=== PATIENT | female | born 1985 | race Caucasian/White ===

== ENCOUNTER 2017-12-30 18:09 | Emergency (ER) | payer BC ==
--- NOTE | 2017-12-30 18:12 | PDOC ---
History of Present Illness - General History Source: Patient Exam Limitations: No Limitations - History of Present Illness Initial Comments: 12/30/17 18:37 The patient is a 32 year old female with no significant past medical history who presents to the ED with complaints of chest pain for one week. The patient reports pain to her left rib and sternal area. She describes the pain as a dull ache that is constant and worsened when sitting up, laughing and coughing. She also reports a sudden onset of shortness of breath and generalized weakness last night while walking to the garage that lasted several seconds before residing. Denies loss of consciousness. Patient is currently on Macrobid s/p polypectomy 2 weeks ago. Denies recent heavy lifting. Denies recent travel. Denies leg swelling. Denies cough. Denies rhinorrhea or throat pain. Denies rash. Denies nausea, vomiting, or diarrhea. Denies any other symptoms. LMP: 2 weeks ago Family hx: Patients family has a hx of HTN and diabetes. Social hx: The patient works as a nurse in [employer]. Patient is currently on control. <oMntana Holloway - Last Filed: 12/30/17 18:37> <Mandi Keller - Last Filed: 12/30/17 19:09> - General Chief Complaint: Chest Pain Stated Complaint: CHEST/BREAST PAIN Time Seen by Provider: 12/30/17 18:10 Past History <Montana Holloway - Last Filed: 12/30/17 18:37> - Past Medical History Disorders: Yes (IBS) - Suicide/Smoking/Psychosocial Hx Smoking Status: No Smoking History: Never smoked Number of Cigarettes Smoked Daily: 0 Cigars Per Day: 0 <Mandi Keller - Last Filed: 12/30/17 19:09> - Past Medical History Allergies/Adverse Reactions: Allergies Allergy/AdvReac Type Severity Reaction Status Date / Time No Known Allergies Allergy Verified 12/30/17 18:10 Home Medications: Ambulatory Orders Criselle Controll Pills 1 tab PO ASDIR 12/30/17 Review of Systems - Review of Systems Able to Perform ROS?: Yes Comments:: 12/30/17 18:37 GENERAL/CONSTITUTIONAL: + generalized weakness. No fever or chills. HEAD, EYES, EARS, NOSE AND THROAT: No change in vision. No ear pain or discharge. No sore throat. CARDIOVASCULAR: + chest pain, SOB RESPIRATORY: No cough, wheezing, or hemoptysis. GASTROINTESTINAL: No nausea, vomiting, diarrhea or constipation. GENITOURINARY: No dysuria, frequency, or change in urination. MUSCULOSKELETAL: No joint or muscle swelling or pain. No neck or back pain. SKIN: No rash NEUROLOGIC: No headache, vertigo, loss of consciousness, or change in strength/ sensation. ENDOCRINE: No increased thirst. No abnormal weight change. HEMATOLOGIC/LYMPHATIC: No anemia, easy bleeding, or history of blood clots. ALLERGIC/IMMUNOLOGIC: No hives or skin allergy. All Other Systems: Reviewed and Negative <Montana Holloway - Last Filed: 12/30/17 18:37> *Physical Exam - Vital Signs Last Vital Signs Temp Pulse Resp BP Pulse Ox 98.4 F 75 18 117/79 100 12/30/17 18:10 12/30/17 18:10 12/30/17 18:10 12/30/17 18:10 12/30/17 18:10 - Physical Exam Comments: 12/30/17 18:37 GENERAL: Awake, alert, and fully oriented, in no acute distress HEAD: No signs of trauma EYES: PERRLA, EOMI, sclera anicteric, conjunctiva clear ENT: Auricles normal inspection, hearing grossly normal, nares patent, oropharynx clear without exudates. Moist mucosa NECK: Normal ROM, supple, no lymphadenopathy, JVD, or masses LUNGS: Breath sounds equal, clear to auscultation bilaterally. No wheezes, and no crackles CHEST: + Reproducible left rib and sternal pain HEART: Regular rate and rhythm, normal S1 and S2, no murmurs, rubs or gallops ABDOMEN: Soft, nontender, normoactive bowel sounds. No guarding, no rebound. No masses EXTREMITIES: Normal range of motion, no edema. No clubbing or cyanosis. No cords, erythema, or tenderness NEUROLOGICAL: Normal speech SKIN: Warm, Dry, normal turgor, no rashes or lesions noted. <Montana Holloway - Last Filed: 12/30/17 18:37> Heart Score/ECG Review - History History: Slightly suspicious - Electrocardiogram EKG: Normal - ECG Intrepretation Comment:: 12/30/17 19:03 sinus at 61, nl axis, nl interval, no acute st/t wave findings <Mandi Keller - Last Filed: 12/30/17 19:09> Medical Decision Making - Medical Decision Making 12/30/17 19:07 a/p: 32yo female with reproducible chest wall pain -ttp over costosternal junction -no rashes -no cardiac risk factors for ACS, no fam hx of sudden cardiac , no palpitations, PERC negative -will check ekg, cxr -motrin for pain -will monitor and reassess 12/30/17 19:08 vss ambulatory in the ED with a steady gait pending cxr will be signed out to the oncoming ED physician pending cxr and reassess <Mandi Keller - Last Filed: 12/30/17 19:09> *DC/Admit/Observation/Transfer - Attestations Scribe Attestion: 12/30/17 18:37 Documentation prepared by Montana Holloway, acting as rn medical inpatient services for Mandi Keller DO <Montana Holloway - Last Filed: 12/30/17 18:37> - Discharge Dispostion Admit: No - Attestations Physician Attestion: 12/30/17 19:09 I, Dr. Mandi Keller DO, attest that this document has been prepared under my direction and personally reviewed by me in its entirety. I further attest, that it accurately reflects all work, treatment, procedures and medical decision -making performed by me. <Mandi Keller - Last Filed: 12/30/17 19:09> Diagnosis at time of Disposition: Atypical chest pain - Discharge Dispostion Condition at time of disposition: Stable - Referrals Referrals: Alice Dangelo MD [Primary Care Provider] - - Patient Instructions Printed Discharge Instructions: DI for Atypical Chest Pain - Post Discharge Activity
[2017-12-30 18:19] VITALS: BP 117/79; PULSE 75; TEMP 98.4; BMI 26.6
[2017-12-30] MEDS ORDERED: IBUPROFEN 600 MG TABLET (FP) PO ONE ×2 (18:26→18:28)
--- NOTE | 2017-12-30 19:32 | PDOC ---
*Physical Exam - Vital Signs Last Vital Signs Temp Pulse Resp BP Pulse Ox 98.4 F 75 18 117/79 100 12/30/17 18:10 12/30/17 18:10 12/30/17 18:10 12/30/17 18:10 12/30/17 18:10 ED Treatment Course - ADDITIONAL ORDERS Additional order review: Laboratory Results 12/30/17 18:38 Urine HCG, Qual Negative - Medications Given in the ED: ED Medications Discontinued Medications Generic Name Dose Route Start Last Admin Trade Name Clayton PRN Reason Stop Dose Admin Ibuprofen 600 mg 12/30/17 18:26 12/30/17 18:38 Motrin - PO 12/30/17 18:27 600 mg ONCE ONE Administration Progress Note - Progress Note Progress Note: Care of this patient received from Dr. Keller. Chest x-ray shows no evidence of infiltrate/effusion/masses or other acute processes. Patient was discharged with instructions to return to the emergency room if she has persistent severe pain or experiences shortness of breath/cough/fever. *DC/Admit/Observation/Transfer Diagnosis at time of Disposition: Atypical chest pain - Discharge Dispostion Disposition: HOME Condition at time of disposition: Stable - Referrals Referrals: Alice Dangelo MD [Primary Care Provider] - 1 week - Patient Instructions Printed Discharge Instructions: DI for Atypical Chest Pain Additional Instructions: avoid strenuous upper body activity for the next 7-10 days ibuprofen/naproxen/acetaminophen as needed for pain return if pain is severe, shortness of breath/cough/fever develops followup with your doctor within 5-7 days - Post Discharge Activity
--- NOTE | 2018-01-01 12:33 | EKG ---
Test Reason : Blood Pressure : / mmHG Vent. Rate : 061 BPM Atrial Rate : 061 BPM P-R Int : 128 ms QRS Dur : 082 ms QT Int : 376 ms P-R-T Axes : 059 072 034 degrees QTc Int : 378 ms NORMAL SINUS RHYTHM WITH SINUS ARRHYTHMIA NORMAL ECG NO PREVIOUS ECGS AVAILABLE Confirmed by KENISHA BURLESON MD ([id number]) on 01/01/2018 12:33:13 PM Referred By: TOMY HERNANDEZ Confirmed By:KENISHA BURLESON MD
== END 2017-12-30 19:50 | disposition home or self-care (01) ==
LOC: FER 18:09
DX: R07.89 Other chest pain (principal); K58.9 Irritable bowel syndrome, unspecified
CPT/HCPCS: 71046-TC-FY; 84703; 93005; 99285-25

== ENCOUNTER 2018-02-01 09:16 | Emergency (ER) | payer BC ==
[2018-02-01 09:24] VITALS: BP 124/77; PULSE 101; TEMP 99.9; BMI 26.6
--- NOTE | 2018-02-01 10:00 | PDOC ---
History of Present Illness - General Chief Complaint: Sore Throat Stated Complaint: THROAT & RIGHT EAR PAIN Time Seen by Provider: 02/01/18 09:31 Past History - Past Medical History Allergies/Adverse Reactions: Allergies Allergy/AdvReac Type Severity Reaction Status Date / Time No Known Allergies Allergy Verified 02/01/18 09:20 Home Medications: Ambulatory Orders Amoxicillin/Potassium Clav [Augmentin 875-125 Tablet] 1 each PO BID #14 tablet 02/01/18 Ibuprofen [Advil -] 600 mg PO TID PRN 02/01/18 Norgestrel-Ethinyl Estradiol [Cryselle-28 Tablet] 1 tab PO DAILY 02/01/18 COPD: No Disorders: Yes (IBS) - Immunization History Immunization Up to Date: Yes - Suicide/Smoking/Psychosocial Hx Smoking Status: No Smoking History: Never smoked Have you smoked in the past 12 months: No Number of Cigarettes Smoked Daily: 0 Cigars Per Day: 0 Hx Alcohol Use: No Drug/Substance Use Hx: No Substance Use Type: None *Physical Exam - Vital Signs Last Vital Signs Temp Pulse Resp BP Pulse Ox 99.9 F H 101 H 16 124/77 100 02/01/18 09:18 02/01/18 09:18 02/01/18 09:18 02/01/18 09:18 02/01/18 09:18 ED Treatment Course - LABORATORY CBC & Chemistry Diagram: 02/01/18 09:55 02/01/18 09:55 *DC/Admit/Observation/Transfer Diagnosis at time of Disposition: URI, acute - Discharge Dispostion Disposition: HOME Condition at time of disposition: Stable Decision to Admit order: No - Referrals Referrals: Alice Dangelo MD [Primary Care Provider] - - Patient Instructions Printed Discharge Instructions: DI for Viral Upper Respiratory Infection -- Adult - Post Discharge Activity Forms/Work/School Notes: Back to Work
[2018-02-01 10:39] LABS: BASO % 0.4 % (0-2.0); EOS % 1.4 % (0-4.5); HEMATOCRIT 39.9 % (32.4-45.2); HEMOGLOBIN 13.9 GM/dl (10.7-15.3); LYMPH % 8.7 % (8-40); MCH 30.8 pg (25.7-33.7); MCHC 34.7 g/dl (32.0-36.0); MEAN CELL VOLUME 88.8 fl (80-96); MEAN PLT VOLUME 8.2 fl (7.5-11.1); MONO % 6.4 % (3.8-10.2); NEUT % 83.1 % (42.8-82.8); PLATELET COUNT 284 K/MM3 (134-434); RBC 4.49 M/mm3 (3.60-5.2); WHITE BLOOD COUNT 10.1 K/mm3 (4.0-10.8)
[2018-02-01 10:53] LABS: ALBUMIN 3.8 g/dl (3.5-5.0); ALK PHOS 60 U/L (32-92); ANION GAP 5 (8-16); BILIRUBIN,TOTAL 0.5 mg/dl (0.2-1.0); BLOOD UREA NITROGEN 10 mg/dl (7-18); CALCIUM 9.1 mg/dl (8.4-10.2); CHLORIDE 108 mmol/L (98-107); CO2 24 mmol/L (22-28); CREATININE 0.8 mg/dl (0.6-1.3); GLUCOSE,RANDOM 95 mg/dl (74-106); POTASSIUM 4.1 mmol/L (3.5-5.1); SGOT/AST 14 U/L (10-42); SGPT/ALT 13 U/L (10-40); SODIUM 137 mmol/L (136-145); TOT PROT 7.3 g/dl (6.4-8.3)
[2018-02-01] MEDS ORDERED: AMOX TR/POT CLAV 875MG/125MG TABLETS (FP) PO ONE (11:48)
[2018-02-01] MEDS ORDERED: AMOX TR/POT CLAV 875MG/125MG TABLETS (FP) ONE (11:50)
== END 2018-02-01 11:59 | disposition home or self-care (01) ==
LOC: FER 09:16
DX: J06.9 Acute upper respiratory infection, unspecified (principal)
CPT/HCPCS: 36415; 80053; 85025; 86308; 87070; 87430; 99282-25

== ENCOUNTER 2019-02-08 02:07 | Emergency (ER) | payer BC, OTHER ==
[2019-02-08 02:14] VITALS: BP 126/85; PULSE 80; TEMP 98; BMI 26.9
--- NOTE | 2019-02-08 02:52 | PDOC ---
History of Present Illness - General Chief Complaint: Lightheaded Stated Complaint: DIZZY Time Seen by Provider: 02/08/19 02:09 History Source: Patient Exam Limitations: No Limitations - History of Present Illness Initial Comments: 02/08/19 02:52 33 year old female with no past medical history presents with lightheadedness. 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 The patient has had several episodes of work where she would feel suddenly lightheaded. Never had chest pain or shortness of breath. Denies recent illnesses. Denies diplopia, slurring of speech, numbness, weakness. Pt states that it's not exertional and occurs randomly throughout the day. Pt had recently visited [facility] [facility] ED and had blood work, ECG, and labs done. ECG was unremarkable. Labs including TSH, d-dimer, and troponin were negative. Chest xray unremarkable. Pt was instructed to follow up with a neurologist. Pt had another episode overnight and came into ED. In the ED, did not have any symptoms. Past History - Past Medical History Allergies/Adverse Reactions: Allergies Allergy/AdvReac Type Severity Reaction Status Date / Time No Known Allergies Allergy Verified 02/01/18 09:20 Home Medications: Ambulatory Orders Norgestrel-Ethinyl Estradiol [Cryselle-28 Tablet] 1 each PO DAILY 02/08/19 COPD: No Disorders: Yes (IBS) - Immunization History Immunization Up to Date: Yes - Suicide/Smoking/Psychosocial Hx Smoking Status: No Smoking History: Never smoked Have you smoked in the past 12 months: No Number of Cigarettes Smoked Daily: 0 Cigars Per Day: 0 Hx Alcohol Use: No Drug/Substance Use Hx: No Substance Use Type: None Review of Systems - Review of Systems Able to Perform ROS?: Yes Comments:: 02/08/19 03:03 GENERAL/CONSTITUTIONAL: [No fever or chills. No weakness. No weight change.] HEAD, EYES, EARS, NOSE AND THROAT: [No change in vision. No ear pain or discharge. No sore throat.] CARDIOVASCULAR: [No chest pain or shortness of breath.] RESPIRATORY: [No cough, wheezing, or hemoptysis.] GASTROINTESTINAL: [No nausea, vomiting, diarrhea or constipation. No rectal bleeding.] GENITOURINARY: [No dysuria, frequency, or change in urination.] MUSCULOSKELETAL: [No joint or muscle swelling or pain. No neck or back pain.] SKIN AND BREASTS: [No rash or easy bruising.] NEUROLOGIC: [No headache, vertigo, loss of consciousness, or loss of sensation. ] + lightheadedness PSYCHIATRIC: [No depression or anxiety.] ENDOCRINE: [No increased thirst. No abnormal weight change.] HEMATOLOGIC/LYMPHATIC: [No anemia, easy bleeding, or history of blood clots.] ALLERGIC/IMMUNOLOGIC: [No hives or skin allergy. No latex allergy.] *Physical Exam - Vital Signs Last Vital Signs Temp Pulse Resp BP Pulse Ox 98 F 80 16 126/85 99 02/08/19 02:09 02/08/19 02:09 02/08/19 02:02/08/19 02:09 02/08/19 02:09 - Physical Exam Comments: 02/08/19 03:03 GENERAL: Awake, alert, and fully oriented, in no acute distress HEAD: No signs of trauma EYES: EOMI, sclera anicteric, conjunctiva clear ENT: Auricles normal inspection, hearing grossly normal, nares patent, Moist mucosa NECK: Normal ROM, supple, EXTREMITIES: Normal range of motion, no edema. No clubbing or cyanosis. No cords, erythema, or tenderness NEUROLOGICAL: Cranial nerves II through XII grossly intact. Normal speech, normal gait SKIN: Warm, Dry, normal turgor, no rashes or lesions noted. Medical Decision Making - Medical Decision Making 02/08/19 03:04 Vital Signs Temp Pulse Resp BP Pulse Ox 98 F 80 16 126/85 99 02/08/19 02:09 02/08/19 02:09 02/08/19 02:09 02/08/19 02:09 02/08/19 02:09 The patient has been having lightheadedness episodes for several months. At this time, it is unclear what the etiology of her symptoms are. The patient would benefit from further additional testing such as echo, holter, carotid dopplers and MRI of the brain. Given that the symptoms have been chronic, we will defer testing in the ED. The patient states that she will follow up with her PMD today to discuss these issues. Pt was also given referrals to a neurologist and cattle alley worker. I discussed the physical exam findings, ancillary test results and final diagnoses with the patient. I answered all of the patient's questions. The patient was satisfied with the care received and felt comfortable with the discharge plan and treatment plan. The patient will call their primary care physician within 24 hours to arrange follow-up and will return to the Emergency Department with any new, persistant or worsening symptoms. *DC/Admit/Observation/Transfer Diagnosis at time of Disposition: Lightheadedness - Discharge Dispostion Disposition: HOME Condition at time of disposition: Stable Decision to Admit order: No - Referrals Referrals: Pearl Hanna MD [Primary Care Provider] - Dilip Wynn MD [Staff Physician] - Abram Weber MD [Staff Physician] - Ismael Rust MD [Staff Physician] - Juan Stein MD [Staff Physician] - Bj Almaraz MD [Staff Physician] - Yunier Noyola MD [Staff Physician] - Yossi Veliz MD [Staff Physician] - - Patient Instructions Additional Instructions: For your symptoms, it is very important that you follow up with your doctor. Please make an appointment with a neurologist and a cattle alley worker. You may potentially benefit from a holter monitor, echocardiogram, carotid dopplers and MRI of the brain. Please follow up with Dr. Crowley to discuss these issues. - Post Discharge Activity
== END 2019-02-08 02:54 | disposition home or self-care (01) ==
LOC: FER 02:07
DX: R42 Dizziness and giddiness (principal); K58.9 Irritable bowel syndrome, unspecified
CPT/HCPCS: 99281-25

== ENCOUNTER 2019-02-13 10:06 | Emergency (ER) | payer OTHER ==
[2019-02-13 10:34] VITALS: BP 112/72; PULSE 92; TEMP 98.9; BMI 29.0
--- NOTE | 2019-02-13 11:35 | PDOC ---
History of Present Illness - General Chief Complaint: Lightheaded Stated Complaint: LIGHTHEADED Time Seen by Provider: 02/13/19 10:44 History Source: Patient - History of Present Illness Timing/Duration: other Past History - Past Medical History Allergies/Adverse Reactions: Allergies Allergy/AdvReac Type Severity Reaction Status Date / Time No Known Allergies Allergy Verified 02/13/19 10:39 Home Medications: Ambulatory Orders Norgestrel-Ethinyl Estradiol [Cryselle-28 Tablet] 1 each PO DAILY 02/08/19 COPD: No Disorders: Yes (IBS) - Immunization History Immunization Up to Date: Yes - Suicide/Smoking/Psychosocial Hx Smoking Status: No Smoking History: Never smoked Have you smoked in the past 12 months: No Number of Cigarettes Smoked Daily: 0 Cigars Per Day: 0 Information on smoking cessation initiated: No Hx Alcohol Use: No Drug/Substance Use Hx: No Substance Use Type: None Review of Systems - Review of Systems Constitutional: No: Chills, Fever, Malaise, Weakness, Unexplained wgt Loss Respiratory: No: Shortness of Breath Cardiac (ROS): No: Chest Pain, Palpitations, Syncope ABD/GI: No: Nausea, Vomiting Neurological: Yes: Dizziness. No: Headache, Numbness, Tingling, Weakness *Physical Exam - Vital Signs Last Vital Signs Temp Pulse Resp BP Pulse Ox 98.9 F 92 H 18 112/72 100 02/13/19 10:25 02/13/19 10:25 02/13/19 10:25 02/13/19 10:25 02/13/19 10:25 - Physical Exam General Appearance: Yes: Appropriately Dressed. No: Apparent Distress HEENT: positive: Normal Voice Neck: positive: Supple Respiratory/Chest: negative: Respiratory Distress Integumentary: positive: Dry, Warm Neurologic: positive: paper sheeter II-XII NML intact, Fully Oriented, Alert, Normal Mood/ Affect, Motor Strength / Medical Decision Making - Medical Decision Making 02/13/19 11:28 33 yo F, presents with dizziness. Patient states for the past 5-6 months has had intermittent lightheadedness regardless of position. No vertigo, headache, nausea, vomiting, visual changes, CP, SOB, palpitations or unexplained weight loss. Has had multiple workups which were negative including last week at [facility] where pt had negative labs including TSH and dimer. Was seen by cardiology yesterday and told symptoms most likely not cardiac. Patient was also seen by a neurologist and now has MRI brain pending tomorrow but here in ED, requesting MRI today because she does not want to wait until tomorrow. Patient well- appearing and stable with unremarkable exam. Explained to patient that she needs to wait for her MRI tomorrow and to continue following up with her doctors for further workup of her sxs *DC/Admit/Observation/Transfer Diagnosis at time of Disposition: Lightheadedness - Discharge Dispostion Disposition: HOME Condition at time of disposition: Stable - Referrals Referrals: Pearl Hanna MD [Primary Care Provider] - - Patient Instructions Printed Discharge Instructions: DI for Dizziness-Nonvertigo Additional Instructions: The cause of your dizziness is unclear and you need to follow up with for your MRI tomorrow as scheduled - Post Discharge Activity
--- NOTE | 2019-02-17 15:39 | EKG ---
Test Reason : Blood Pressure : / mmHG Vent. Rate : 093 BPM Atrial Rate : 093 BPM P-R Int : 134 ms QRS Dur : 080 ms QT Int : 346 ms P-R-T Axes : 057 074 004 degrees QTc Int : 430 ms NORMAL SINUS RHYTHM NONSPECIFIC ST AND T WAVE ABNORMALITY ABNORMAL ECG WHEN COMPARED WITH ECG OF 30-DEC-2017 18:31, VENT. RATE HAS INCREASED BY 32 BPM NONSPECIFIC T WAVE ABNORMALITY, WORSE IN ANTERIOR LEADS Confirmed by KENISHA BURLESON MD ([id number]) on 02/17/2019 3:38:47 PM Referred By: Confirmed By:KENISHA BURLESON MD
== END 2019-02-13 11:45 | disposition home or self-care (01) ==
LOC: JER 10:06
DX: R42 Dizziness and giddiness (principal)
CPT/HCPCS: 93005; 93010; 99281-25

== ENCOUNTER 2019-03-29 12:53 | Emergency (ER) | payer OTHER ==
[2019-03-29 13:14] VITALS: PULSE 90; BMI 29.0
--- NOTE | 2019-03-29 14:42 | PDOC ---
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 Has been having daily episodes of brief lightheadedness for last 2 months. Today , patient felt more lightheaded than normal, laid down on floor and was unable to stand. Lasted 3-4 minutes, longer than normal episodes, accompanied by SOB, denied head trauma or LOC. Called EMS herself. Events come and go, not triggered by specific activity, random with regards to time and place, relieved by rest. Also reports LLE pain inside leg. Denies recent leg trauma, muscle cramping, unable to exercise 2/2 lightheadedness last 2 months. On OCP for 16 years, stopped earlier March. Denies recent long-distance travel or long periods of sitting. Being evaluated by rivet hole puncher, s/p echo, stress test, and holter, results normal. Evaluated MRI head by neurologist, no pathology found. Has recent auto- antibody testing showing elevated ASO and TPO. Past History - Past Medical History Allergies/Adverse Reactions: Allergies Allergy/AdvReac Type Severity Reaction Status Date / Time No Known Allergies Allergy Verified 03/29/19 13:14 Home Medications: Ambulatory Orders Norgestrel-Ethinyl Estradiol [Cryselle-28 Tablet] 1 each PO DAILY 02/08/19 COPD: No Disorders: Yes (IBS) - Immunization History Immunization Up to Date: Yes - Suicide/Smoking/Psychosocial Hx Smoking Status: No Smoking History: Never smoked Have you smoked in the past 12 months: No Number of Cigarettes Smoked Daily: 0 Cigars Per Day: 0 Hx Alcohol Use: No Drug/Substance Use Hx: No Substance Use Type: None Review of Systems - Review of Systems Constitutional: Yes: Weakness. No: Chills, Diaphoresis, Fever HEENTM: No: Blurred Vision, Double Vision, Throat Swelling Respiratory: Yes: Shortness of Breath. No: Cough Cardiac (ROS): Yes: Lightheadedness. No: Chest Pain, Edema, Palpitations ABD/GI: No: Constipated, Diarrhea, Nausea, Vomiting, Other : No: Burning, Dysuria, Discharge Musculoskeletal: Yes: Muscle Pain (LLE) Integumentary: No: Bruising, Lesions, Pallor, Rash Neurological: No: Headache, Paresthesia Psychiatric: No: Anxiety, Stressors Endocrine: No: Symptoms Reported Hematologic/Lymphatic: No: Symptoms Reported *Physical Exam - Vital Signs Last Vital Signs Temp Pulse Resp BP Pulse Ox 98.7 F 90 16 120/65 97 03/29/19 13:12 03/29/19 13:12 03/29/19 13:12 03/29/19 13:12 03/29/19 13:12 - Physical Exam General Appearance: Yes: Appropriately Dressed. No: Apparent Distress HEENT: positive: KAMI, Normal ENT Inspection, Normal Voice, Symmetrical, Pharynx Normal. negative: Scleral Icterus (R), Scleral Icterus (L) Neck: positive: Tender, Trachea midline, Normal Thyroid, Supple Respiratory/Chest: positive: Lungs Clear, Normal Breath Sounds. negative: Chest Tender, Respiratory Distress, Decreased Breath Sounds, Crackles, Rales, Rhonchi Cardiovascular: positive: Regular Rhythm, Regular Rate. negative: Murmur, Gallop/S3 Gastrointestinal/Abdominal: positive: Soft. negative: Normal Bowel Sounds, Organomegaly Musculoskeletal: positive: Other. negative: Decreased Range of Motion Extremity: positive: Normal Range of Motion, Tender, Calf Tenderness (point tenderness to L lateral gastroc body, no signs of vesicular rash, bruising, injury) Integumentary: positive: Normal Color, Dry, Warm Neurologic: positive: clinical resource manager II-XII NML intact, Fully Oriented, Alert, Normal Mood/ Affect, Normal Response, Motor Strength / ED Treatment Course - LABORATORY CBC & Chemistry Diagram: 03/29/19 15:00 03/29/19 15:50 Medical Decision Making - Medical Decision Making 03/29/19 16:00 Marina Black is a 33F with PMH lightheadedness presenting with L leg pain and worsening lightheadedness. With worsening lightheadedness, concerned for cardiac pathology. Will evaluate for electrolyte imbalance, arrhythmia, dehydration. Ordering CMP, CBC, UA, UC, Upreg, CXR, ECG. Given LLE pain and long-term OCP use, concerned for PE. Cannot PERC out due to OCP use, but low risk Wells. Ordering LLE doppler and d-dimer for low prob r/o DVT/PE. 03/29/19 17:20 LE doppler shows no DVT. D-dimer not elevated. Preliminary read CXR shows no pulmonary or cardiac abnormalities. Ruled out PE and arrhythmia in ED, plan to discharge home with f/u cardiology for further evaluation of lightheadedness. *DC/Admit/Observation/Transfer Diagnosis at time of Disposition: Dizziness - Discharge Dispostion Disposition: HOME - Referrals - Patient Instructions Printed Discharge Instructions: DI for Dizziness-Nonvertigo Additional Instructions: Today you were evaluated for worsening lightheadedness and shortness of breath. We looked at your blood levels of electrolytes, checked your heart for any abnormalities, checked your thyroid function, and evaluated your urine for any issues. All of your results were normal. We also performed a doppler study on your left leg and a test call a d-dimer for evaluation for a pulmonary embolism given your shortness of breath and use of oral contraception; no deep clots or pulmonary embolism noted. Based on our evaluation, there is no immediate, life-threatening issues causing your lightheadedness today. Please return to see your rivet hole puncher to continue the evaluation of your symptoms. If you have any further or worsening symptoms, including loss of consciousness, worsening headaches, nausea/vomiting, fever or any other symptoms you find concerning, please return to the emergency room. - Post Discharge Activity
[2019-03-29] MEDS ORDERED: SODIUM CHLORIDE 0.9% 500 ML INFUS.BAG IV ONE (15:17)
[2019-03-29 16:05] LABS: HCG,QUALITATIVE URINE Negative
[2019-03-29 16:09] LABS: HYALINE CASTS 1 /lpf (0-8); URINE APPEARANCE CLEAR; URINE BACTERIA 31.3 /hpf (NEGATIVE); URINE BILIRUBIN NEGATIVE (NEGATIVE); URINE COLOR YELLOW; URINE GLUCOSE (UA) NEGATIVE (NEGATIVE); URINE KETONE 1+ (NEGATIVE); URINE LEUK ESTERASE NEGATIVE (NEGATIVE); URINE NITRITE NEGATIVE (NEGATIVE); URINE PROTEIN NEGATIVE (NEGATIVE); URINE RBC 75 /hpf (0-4); URINE UROBILINOGEN 0.2 mg/dL (0.2-1.0); URINE WBC 1 /hpf (0-5)
[2019-03-29 16:10] LABS: BASO % 0.8 % (0-2.0); HEMATOCRIT 40.3 % (32.4-45.2); HEMOGLOBIN 13.7 GM/dL (10.7-15.3); LYMPH % 22.3 % (8-40); MCH 30.4 pg (25.7-33.7); MCHC 33.9 g/dl (32.0-36.0); MEAN CELL VOLUME 89.7 fl (80-96); MEAN PLT VOLUME 8.3 fl (7.5-11.1); MONO % 9.3 % (3.8-10.2); NEUT % 61.6 % (42.8-82.8); PLATELET COUNT 280 K/MM3 (134-434); RDW 13.1 % (11.6-15.6); WHITE BLOOD COUNT 7.4 K/mm3 (4.0-10.0)
[2019-03-29 16:25] LABS: INR 1.07 (0.83-1.09); PROTHROMBIN TIME (PATIENT) 12.6 SEC (9.7-13.0)
[2019-03-29 16:32] LABS: ALK PHOS 91 U/L (45-117); ANION GAP 6 MMOL/L (8-16); BILIRUBIN,TOTAL 0.5 mg/dL (0.2-1); CALCIUM 9.7 mg/dL (8.5-10.1); CHLORIDE 107 mmol/L (98-107); CO2 27 mmol/L (21-32); CREATININE 0.9 mg/dL (0.55-1.3); GLUCOSE,RANDOM 86 mg/dL (74-106); MAGNESIUM 2.3 mg/dL (1.8-2.4); POTASSIUM 3.8 mmol/L (3.5-5.1); SGOT/AST 13 U/L (15-37); SGPT/ALT 23 U/L (13-61); SODIUM 140 mmol/L (136-145); TOT PROT 7.6 g/dl (6.4-8.2)
--- NOTE | 2019-03-29 18:04 | PDOC ---
Documentation entered by Brett Greenwood SCRIBE, acting as scribe for Timmy Degroot MD. Timmy Degroot MD: This documentation has been prepared by the Timo corrigan Joel, SCRIBE, under my direction and personally reviewed by me in its entirety. I confirm that the documentation accurately reflects all work, treatment, procedures, and medical decision making performed by me. Attending Attestation - Resident Resident Name: BlancaDewayne - ED Attending Attestation I have performed the following: I have examined & evaluated the patient, The case was reviewed & discussed with the resident, I agree w/resident's findings & plan, Exceptions are as noted - HPI HPI: 03/29/19 15:49 The patient is a 33 year old female with a significant PMH of IBS and recurrent lightheadedness who presents to the emergency department for evaluation of lightheadedness and SOB this morning. The patient states she felt very lightheaded this morning and had to lie down for a few minutes. She denies LOC. Denies room-spinning sensation. States that the lightheadedness was associated shortness of breath. She denies hitting her head or LOC. Pt states that she has had several episodes of lightheadedness and has been evaluated by cardiology and neurology, as well as rheumatology. However, the SOB this morning concerned her, prompting her to come to the ED. Pt currently denies any complaints. Denies fever, chills, nausea, vomit, diarrhea and constipation. Denies dysuria, frequency, urgency and hematuria. Allergies: NKA Past surgical history: Polyp removal. Social history: No reported cigarette, alcohol, or drug use. - Physicial Exam PE: 03/29/19 15:30 GENERAL: Awake, alert, and fully oriented, in no acute distress. HEAD: No signs of trauma EYES: PERRLA, EOMI, sclera anicteric, conjunctiva clear ENT: Auricles normal inspection, hearing grossly normal, nares patent, oropharynx clear without exudates. Moist mucosa NECK: Nontender, no stepoffs, Normal ROM, supple, no lymphadenopathy, JVD, or masses LUNGS: Breath sounds equal, clear to auscultation bilaterally. No wheezes, and no crackles HEART: Regular rate and rhythm, normal S1 and S2, no murmurs, rubs or gallops ABDOMEN: Soft, nontender, normoactive bowel sounds. No guarding, no rebound. No masses EXTREMITIES: Normal range of motion, no edema. No clubbing or cyanosis. No cords , erythema, or tenderness NEUROLOGICAL: Cranial nerves II through XII intact. 5/5 strength and sensation in all extremities, Normal speech, normal gait, normal cerebellar function SKIN: Warm, Dry, normal turgor, no rashes or lesions noted. - Medical Decision Making 03/29/19 17:53 33 F with lightheadedness and SOB this morning, now resolved. EKG with no arrhythmia or ischemia. Vitals in ED normal. Will r/o PE with ddimer, as pt is low risk. - Labs, trop, ddimer - CXR - IVF 03/29/19 18:03 Labs wnl dimer negative 03/29/19 18:21 CXR clear Pt is well appearing, with normal vitals. Clinically stable for DC at this time. I discussed the physical exam findings, ancillary test results and final diagnoses with the patient. I answered all of the patient's questions. The patient was satisfied with the care received and felt comfortable with the discharge plan and treatment plan. The patient agrees to follow up with the primary care physician within 24-72 hours.
[2019-03-29 18:53] VITALS: BP 128/81; TEMP 98.3
--- NOTE | 2019-03-30 09:30 | EKG ---
Test Reason : Blood Pressure : / mmHG Vent. Rate : 062 BPM Atrial Rate : 062 BPM P-R Int : 132 ms QRS Dur : 078 ms QT Int : 384 ms P-R-T Axes : 051 058 019 degrees QTc Int : 389 ms NORMAL SINUS RHYTHM NORMAL ECG WHEN COMPARED WITH ECG OF 13-FEB-2019 10:04, VENT. RATE HAS DECREASED BY 31 BPM Confirmed by JOHNNY SALMON MD ([id number]) on 03/30/2019 9:30:00 AM Referred By: Confirmed By:JOHNNY SALMON MD
== END 2019-03-29 18:53 | disposition home or self-care (01) ==
LOC: JER 12:53
PROC: 3E0337Z Introduction of Electrolytic and Water Balance Substance into Peripheral Vein, Percutaneous Approach (ICD-10-PCS; principal; 2019-03-29)
DX: R42 Dizziness and giddiness (principal)
CPT/HCPCS: 36415; 71046-TC-FY; 80053; 81003; 82550; 83735; 84443; 84484; 84703; 85025; 85379; 85610; 87086; 93005; 93010; 93971-TC; 99282-25

== ENCOUNTER 2019-06-02 13:03 | Emergency (ER) | payer OTHER | END 2019-06-02 19:46 | disposition home or self-care (01) | LOC: JER 13:03 ==

== ENCOUNTER 2021-03-11 15:54 | Emergency (ER) | payer OTHER ==
[2021-03-11 17:15] VITALS: BP 114/69; PULSE 85; TEMP 98.4; BMI 26.6
[2021-03-11 17:20] LABS: BASO % 1.9 % (0-2.0); EOS % 3.7 % (0-4.5); HEMATOCRIT 38.2 % (32.4-45.2); HEMOGLOBIN 12.6 GM/dl (10.7-15.3); LYMPH % 36.4 % (8-40); MCH 30.1 pg (25.7-33.7); MCHC 32.9 g/dl (32.0-36.0); MEAN CELL VOLUME 91.3 fl (80-96); MEAN PLT VOLUME 9.1 fl (7.5-11.1); PLATELET COUNT 240 10^3/uL (134-434); RBC 4.18 M/mm3 (3.60-5.2); RDW 12.1 % (11.6-15.6); WHITE BLOOD COUNT 7.1 K/mm3 (4.0-10.8)
[2021-03-11 17:27] LABS: ALBUMIN 4.1 g/dl (3.4-5.0); BILIRUBIN,TOTAL 0.7 mg/dl (0.2-1); CALCIUM 8.6 mg/dl (8.5-10); CREATININE 0.9 mg/dl (0.55-1.3); TOT PROT 7.1 g/dl (6.4-8.2)
== END 2021-03-11 18:45 | disposition home or self-care (01) ==
LOC: FER 15:54 → SUPCPDRO 15:54 → FER 18:45
DX: R10.9 Unspecified abdominal pain (principal)
CPT/HCPCS: 36415; 71046-TC-FY; 80053; 81003; 81015; 84703; 85025; 85379; 99284-25

== ENCOUNTER 2024-05-16 08:49 | Emergency (ER) | payer OTHER ==
[2024-05-16 09:49] LABS: HEMATOCRIT 40.3 % (32.4-45.2); HEMOGLOBIN 13.2 G/dL (10.7-15.3); MCH 27.5 pg (25.7-33.7); MCHC 32.8 g/dl (32.0-36.0); PLATELET COUNT 285.7 10^3/uL (134-434); RDW 13.9 % (11.6-15.6); WHITE BLOOD COUNT 5.1 10^3/uL (4.0-10.8)
[2024-05-16 09:56] VITALS: BP 117/93; PULSE 94; RESP 16; TEMP 97.7; BMI 34.4
[2024-05-16 10:09] LABS: ALBUMIN 3.7 g/dl (3.4-5.0); ALK PHOS 94 U/L (45-117); ANION GAP 4 mmol/L (4-13); BILIRUBIN,TOTAL 0.6 mg/dl (0.2-1); CALCIUM 9.3 mg/dl (8.5-10.1); CHLORIDE 108 mmol/L (98-107); CO2 24 mmol/L (21-32); CREATININE 0.6 mg/dl (0.6-1.3); GLUCOSE,RANDOM 115 mg/dl (74-106); MAGNESIUM 1.9 mg/dL (1.8-2.4); POTASSIUM 4.1 mmol/L (3.5-5.1); SGOT/AST 12 U/L (15-37); SGPT/ALT 17 U/L (7-52); SODIUM 136 mmol/L (136-145); TOT PROT 6.1 g/dl (6.4-8.2)
[2024-05-16 10:28] LABS: PLATELET ESTIMATE ADEQUATE
== END 2024-05-16 11:07 | disposition home or self-care (01) ==
LOC: FER 08:49
DX: R00.2 Palpitations (principal); R06.02 Shortness of breath
CPT/HCPCS: 36415; 71045-TC-FY; 80053; 83735; 84439; 84443; 84481; 84484; 84703; 85027; 93005; 99285-25